=== PATIENT | male | born 1980 | race African-American/Black ===

== ENCOUNTER 2017-06-02 11:50 | Emergency (ER) | payer SELFPAY ==
[~2017-06-02] VITALS: Ht 188 cm; Wt 100.0 kg
[2017-06-02 16:58] VITALS: BP 120/82
[2017-06-02] MEDS ORDERED: BACITRACIN ZINC OINT UDPKT TOP ONE (17:45)
[2017-06-02] MEDS ORDERED: ACETAMINOPHEN 500MG TABLET PO NR (17:45)
== END 2017-06-02 18:13 | disposition home or self-care (01) ==
LOC: ER 14:07
DX: S71.152A Open bite, left thigh, initial encounter (principal); F17.200 Nicotine dependence, unspecified, uncomplicated; F12.10 Cannabis abuse, uncomplicated; W54.0XXA Bitten by dog, initial encounter; Y93.89 Activity, other specified; Y92.89 Other specified places as the place of occurrence of the external cause; Y99.8 Other external cause status
CPT/HCPCS: 99283

== ENCOUNTER 2024-08-02 22:40 | Emergency (ER) | payer MEDICAID ==
[~2024-08-02] VITALS: Ht 182.9 cm; Wt 91.0 kg
[2024-08-02 22:47] VITALS: O2SAT 99
[2024-08-02 23:19] VITALS: BP 127/83; PULSE 96; RESP 16; TEMP 36.7; O2SAT 97
[2024-08-03] MEDS ORDERED: LIDOCAINE HCL/EPINEPHRINE 1%-EPI 1:100,000 20ML VIAL INFIL ONE (00:15)
[2024-08-03] MEDS: HYDROCODONE/ACETAMINOPHEN 5/325MG TABLET PO ONE (00:50)
[2024-08-03] MEDS: KETOROLAC 30MG/ML VIAL IM ONE (00:51)
[2024-08-03] MEDS: TETANUS, DIPHTHERIA, PERTUSSIS VAC/PF 0.5ML (>10YR OLD) IM ONE (00:51)
[2024-08-03] MEDS: BACITRACIN ZINC OINT UDPKT TOP ONE (05:04)
[2024-08-03] MEDS: LIDOCAINE HCL/PF 1% 10 MG/ML 5ML VIAL INFIL ONE (05:05)
[2024-08-03] MEDS ORDERED: HYDR-4001 MT (06:30)
== END 2024-08-03 06:47 | disposition home or self-care (01) ==
LOC: ER 22:40
DX: S01.312A Laceration without foreign body of left ear, initial encounter (principal); S01.111A Laceration without foreign body of right eyelid and periocular area, initial encounter; F12.90 Cannabis use, unspecified, uncomplicated; Z79.899 Other long term (current) drug therapy; W25.XXXA Contact with sharp glass, initial encounter; Y93.89 Activity, other specified; Y92.89 Other specified places as the place of occurrence of the external cause; Y99.8 Other external cause status
CPT/HCPCS: 12014; 99283; J2003; Z7610; 12016; J1885